=== PATIENT | female | born 1975 | race Caucasian/White ===

== ENCOUNTER → 2017-12-21 | Outpatient (CLI) | payer BC ==
--- NOTE | 2017-12-22 10:16 | RADIOLOGY IMAGING REPORT ---
FAC[place] [facility] [place]IENT NAME: GWENDOLYN DOOLEY : [id number] MR: [id number] V: [id number] EXAM DATE: [id number] ORDERING PHYSICIAN: TARYN COKER TECHNOLOGIST: Jagruti Mtz PROCEDURE:BILATERAL DIGITAL SCREENING MAMMOGRAM WITH CAD ASSISTED INTERPRETATION & 3D TOMOSYNTHESIS COMPARISON:11/01/16 & priors to 09/17/14 INDICATIONS:screening FINDINGS: Breast parenchyma is extremely dense. There are no mammographic findings concerning for malignancy. No significant interval mammographic change. DIAGNOSTIC CATEGORY 1--NEGATIVE. RECOMMENDATIONS: ROUTINE MAMMOGRAM AND CLINICAL EVALUATION IN 1 YEAR. IMPRESSION: BIRADS 1: Negative. Dictated by: Andre Ling on 12/22/2017 at 9:18 Transcribed by: BEKAH on 12/22/2017 at 9:58 Approved by: Andre Ling on 12/22/2017 at 10:15 [facility]
== END ==
LOC: MAMO 00:54
PROVIDERS: ATTEND Obstetrics & Gynecology
DX: Z12.31 Encounter for screening mammogram for malignant neoplasm of breast (principal)
CPT/HCPCS: 77063; 77067